=== PATIENT | female | born 1985 | race Caucasian/White ===

== ENCOUNTER → 2021-11-07 | Day surgery (SDC) | payer OTHER ==
[~2021-11-07] MED LIST: LEVOTHYROXINE50 MCG PO; LEVOTHYROXINE88 MC1 PO; PRENATAL VITAM1 EAC3 PO
== END | disposition home or self-care (01) ==
LOC: OR 06:17
DX: J35.3 Hypertrophy of tonsils with hypertrophy of adenoids (principal); J35.8 Other chronic diseases of tonsils and adenoids; J31.2 Chronic pharyngitis; K21.9 Gastro-esophageal reflux disease without esophagitis; E03.9 Hypothyroidism, unspecified; Z79.899 Other long term (current) drug therapy
CPT/HCPCS: 84703; J1100; J1170; J2001; J2250; J2405; J2550; J2704; J2710; J3010